=== PATIENT | male | born 1950 | race Caucasian/White ===

== ENCOUNTER 2018-08-09 07:30 | Day surgery (SDC) | payer MEDICARE, OTHER ==
[~2018-08-09 07:30] MED LIST: BETADINE 5% OPHTHALMIC 30 ML OP ONE; Lactated Ringers 1,000 ML IV ONE
[2018-08-09] MEDS ORDERED: DIPRIVAN 200 MG/20 ML IV ONE (07:31)
[2018-08-09] MEDS ORDERED: TETRACAINE 0.5% STERI-UNIT SOL OP ONE ×2 (08:00)
[2018-08-09] MEDS ORDERED: Lactated Ringers 1,000 ML IV SCH (08:00)
[2018-08-09] MEDS ORDERED: Ak-Dilate OPHTHALMIC*** 0.71 ML, Cyclogyl 1% OPHTH SOL 5 ML 0.71 ML, GATIFLOXACIN 0.5% ... OP ONE ×4 (08:00)
[2018-08-09] MEDS ORDERED: Zofran 4 MG/2 ML VIAL IV PRN (09:00)
[2018-08-09] MEDS ORDERED: LIDOCAINE HCL 1% AMPUL 5 ML IJ ONE (10:30)
[2018-08-09] MEDS ORDERED: BSS 500 ML, Fortaz/Tazicef 1 GM** 0.2 G IO ONE ×2 (10:30)
[2018-08-09] MEDS ORDERED: Epinephrine Preservative Free 1 MG/ML INTRAOP ONE (10:30)
[2018-08-09] MEDS: ACETAZOLAMIDE 250 MG TABLET PO ONE (11:34)
[2018-08-09 11:45] VITALS: O2SAT 97
[2018-08-09 12:00] VITALS: BP 146/69; PULSE 67
--- NOTE | 2018-08-09 13:41 | OP ---
DATE/TIME OF OPERATION: 08/09/2018 1255 TIME DICTATED: 1042 PREOPERATIVE DIAGNOSIS: Senile cataract of right eye. POSTOPERATIVE DIAGNOSIS: Senile cataract of right eye. SURGEON: Ross David MD REUSE TECHNICIAN: None. OPERATION: Cataract extraction of right eye with an intraocular lens implant. STANDARD __X___ COMPLEX ANESTHESIA: MAC. 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 The anesthesiologist or the nurse garden equipment mechanic was utilized to monitor and regulate the intravenous sedation of the patient, so the patient was cooperative, relaxed, and comfortable). Topical anesthesia using Tetracaine eye drops together with intra cameral anesthesia using Lidocaine 1% MPF. The nurse was utilized to monitor the patient. ANESTHESIA PROVIDER: Ze Han CRNA. COMPLICATIONS: None. BLOOD LOSS: None. INDICATIONS: The patient is undergoing cataract surgery in the hopes of eliminating the visual complaints and difficulty. PROCEDURE: After arriving at the facility's outpatient surgery area, an IV was started; the patient was given 5 mg of p.o. Versed. (If an anesthesia provider was not monitoring the patient) The patient was then given topical anesthetic Tetracaine eye drops. A cotton pellet was soaked into a solution of a combination of Zymaxid 0.5%, Shane-Synephrine 2.5% and Ocufen (other drops might have been substituted referenced in the patient's record). The pellet was inserted by the RN into the lower conjunctival cul-de-sac with a sterile forceps and left for 20 minutes. The pellet was then removed by the RN with a sterile forceps before taking the patient to the operating room. The preoperative area nurse identified the patient and marked the correct eye to be operated on. I identified the correct eye to be operated on and marked it appropriately in the outpatient surgery area. The patient was then taken into the operating room. Tetracaine eye drops were installed again in the correct eye. The eyelids and the lashes and the lid margins were scrubbed with Betadine solution. One drop of the diluted Betadine solution was placed in the conjunctival cul-de-sac for 45 seconds and then was irrigated. A drop of Tetracaine Gel was placed in the conjunctival cul-de-sac. The patient's forehead was taped to secure it during the procedure. The patient was monitored. The patient was then draped in the usual way for this procedure. An eye speculum was used to separate the eyelids. The eye was then fixated and a temporal 2.5 mm incision was made in the clear cornea temporally at the limbus. Through the incision, 0.25 cc of 1% non-preserved lidocaine was injected into the anterior chamber for intracameral anesthesia. The anterior chamber was then filled with viscoelastic. The pupil was small. I felt that it would be safer to mechanically dilate the pupil. A Malyugin ring was used at this point which dilated the pupil. That was removed at the end of the procedure prior to aspiration of the viscoelastic from the anterior chamber and posterior to the intraocular lens implant. The cataract had a great amount of cortical changes. That rendered seeing the anterior capsule difficult for a safe performance of an anterior capsulotomy. I injected an air bubble into the anterior chamber. I then injected 1 ML of vision blue solution into the anterior chamber. The vision blue solution was irrigated from the anterior chamber after 30 seconds. The anterior capsule was stained which facilitated performing the anterior capsulotomy safely. After that was completed, a cystotome was introduced into the anterior chamber and a round anterior capsulotomy was performed. The capsule was removed by a forceps. Hydrodissection was next carried utilizing a 25-gauge cannula and balanced salt solution to delineate the cortical material from the capsule and the nucleus from the cortical material. The nucleus was rotated freely into the capsular bag with no difficulty. The phaco tip of the [facility] Phaco[facility]uls[facility] was introduced into the anterior chamber and two grooves were made into the nucleus 90 degrees apart. Using two spatulas resulted into the nucleus being fractured into four quadrants. The phaco tip was then used to remove each quadrant of the nucleus. Viscoelastic was used during this process to protect the corneal endothelium. Once the entire nucleus was removed, the phaco tip then was removed and the irrigation tip was introduced into the eye and the cortex was removed. The posterior capsule was polished. It was noticed that there was a tear into the posterior capsule with few vitreous strands into the pupil plan. An anterior vitrectomy was performed. A 18.00 diopter, [id number], posterior chamber lens implant, was inspected and found to be grossly normal. The implant was inserted into the implant injector cartridge; Viscoelastic again was introduced into the anterior chamber, which filled the capsular bag. The implant injector's cartridge tip was placed at the limbal wound and the posterior chamber implant was released into the capsular bag and rotated appropriately. The implant was found to be into the capsular bag and it was centered. __X__ 0.2 ml of Tri-Moxi was introduced via 27 gauge cannula into the vitreous cavity through the ciliary processes. Viscoelastic was aspirated from the anterior chamber and posterior to the intraocular lens implant from the capsular bag using the irrigating tip. The anterior chamber was irrigated and filled with 5 cc antibiotic solution (500 cc of BSS plus 2 ml of Fortaz 100 mg/ml) ( if patient was not allergic to the medication). The lips of the corneal incision were hydrated using BSS solution. The anterior chamber was checked and found to be water tight. One drop each of antibiotic, steroid and NSAID drops (refer to chart for drops used) were placed in the conjunctival cul-de-sac of the operated eye. Patient tolerated the procedure quite well and left the operating room in satisfactory condition. DISCHARGE SUMMARY: The patient was released in stable condition. The patient and those with the patient were given an instruction sheet as of how to care for the eye after surgery as well as counseling on any abnormal laboratory studies by the postoperative RN. The patient was also given an appointment card for follow-up in the office and is to call immediately for any difficulties including but not limited to pain in the eye, decreased vision, discharge from the eye, headache and or fever. DISCHARGE DIAGNOSIS: Pseudophakia of right eye.
== END 2018-08-09 12:21 | disposition home or self-care (01) ==
LOC: SDC 07:30
PROVIDERS: ATTEND Ophthalmology
DX: H25.9 Unspecified age-related cataract (principal); M19.90 Unspecified osteoarthritis, unspecified site; E11.9 Type 2 diabetes mellitus without complications; Z79.4 Long term (current) use of insulin; G47.00 Insomnia, unspecified; N40.0 Benign prostatic hyperplasia without lower urinary tract symptoms; F31.9 Bipolar disorder, unspecified; G20 Parkinson's disease
CPT/HCPCS: 66982; 66984; 67005; 82962; 94250; C1780; J0171; J2704; A9270-GY

== ENCOUNTER 2020-11-07 12:01 | Emergency (ER) | payer MEDICARE, OTHER ==
--- NOTE | 2020-11-07 12:47 | XRAY ---
Indication: Fever and cough. Covid 19 in August 2020. Portable chest rotated with right mid to lower lung infiltrate versus atelectasis. Left lung clear. Heart borderline enlarged. Descending aorta are tortuous. Bony thorax intact with mild degenerative changes. Impression: Right mid to lower lung infiltrate/atelectasis and borderline cardiomegaly.
--- NOTE | 2020-11-07 12:52 | ERPHSYRPT ---
- History of Present Illness Source: patient Exam Limitations: no limitations Patient Subjective Stated Complaint: Pt states that for about 4 days he has been having a fever off and on, headache, coughing, sob, and nausea with dry heaves, pt was positive for covid 09/22/2020 and had it for approx 3 weeks Triage Nursing Assessment: Pt brought to the ER by his , hypertensive, tachycardic, diaphoretic, pulses normal, denies pain with palpatation to the abdomen, lungs clear, skin n/h/diaphoretic, rates pain in head 04/03, cough Physician History: 70 yo wm who was CV+ after Thanksgiving and recovered after 3 wks presents to ER w 4day h/o BRITO/N/cough/fever wo vomiting/coryza/chest pain. He has mild dyspnea. Timing/Duration: day(s) (4 days) Fever Severity: mild Fever Therapy SENIOR ADMINISTRATIVE ASSOCIATE: Ibuprofen Associated Symptoms: cough, diaphoresis, headache, muscle aches, nausea/vomiting, No abdominal pain, No chest pain, No confusion, No rash, No rhinorrhea, No shortness of breath, No sore throat, No stiff neck, No syncope, No weakness Allergies/Adverse Reactions: No Known Drug Allergies Allergy (Verified 11/07/20 12:29) Home Medications: Armodafinil [Nuvigil] 150 mg PO DAILY 07/27/18 [History] Doxycycline Hyclate 100 mg PO DAILY 07/27/18 [History] Metformin HCl 500 mg [Glucophage 500 MG] 500 mg PO BIDWM 07/27/18 [History] Pramipexole Di-HCl [Mirapex] 0.25 mg PO DAILY 07/27/18 [History] Sertraline HCl [Zoloft] 100 mg PO DAILY 07/27/18 [History] Zolpidem Tartrate 10 mg [Ambien 10 MG] 10 mg PO HS 07/27/18 [History] Atorvastatin Calcium [Lipitor] 20 mg PO DAILY 11/07/20 [History] Diclofenac Sodium 75 mg PO BID 11/07/20 [History] Lisinopril/Hydrochlorothiazide [Lisinopril-Hctz 10-12.5 mg Tab] 1 tab PO DAILY 11/07/20 [History] Quetiapine Fumarate [Seroquel] 50 mg PO DAILY 11/07/20 [History] Hx Influenza Vaccination/Date Given: Yes Hx Pneumococcal Vaccination/Date Given: Yes Travel Risk - International Travel Have you traveled outside of the country in past 3 weeks: No - Coronavirus Screening Are you exhibiting any of the following symptoms?: Yes Symptoms: Fever, Cough: New Onset, Shortness of Breath, Vomiting/Diarrhea Close contact with a COVID-19 positive Pt in past 14-21 Days: No - Review of Systems Constitutional: No Symptoms, Fever, Chills, Fatigue Eyes: No Symptoms Ears, Nose, & Throat: No Symptoms Respiratory: No Symptoms, Cough Cardiac: No Symptoms Abdominal/Gastrointestinal: No Symptoms, Nausea Genitourinary Symptoms: No Symptoms Musculoskeletal: No Symptoms Skin: No Symptoms Neurological: No Symptoms, Headache Psychological: No Symptoms Endocrine: No Symptoms Hematologic/Lymphatic: No Symptoms Immunological/Allergic: No Symptoms - Past Medical History Pertinent Past Medical History: Yes Neurological History: No Pertinent History ENT History: Cataracts Cardiac History: No Pertinent History Respiratory History: No Pertinent History Endocrine Medical History: Diabetes Type II Musculoskeletal History: Osteoarthritis GI Medical History: No Pertinent History History: No Pertinent History Psycho-Social History: Depression Male Reproductive Disorders: No Pertinent History 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 - Social History Smoking Status: Former smoker Exposure to second hand smoke: No Drug Use: none Patient Lives Alone: No Significant Family History: no pertinent family hx - Nursing Vital Signs Nursing Vital Signs: Initial Vital Signs Temperature 99.6 F 11/07/20 12:08 Pulse Rate 101 H 11/07/20 12:08 Respiratory Rate 22 11/07/20 12:08 Blood Pressure 158/57 11/07/20 12:08 O2 Sat by Pulse Oximetry 96 11/07/20 12:08 Pain Scale Pain Intensity 5 - Physical Exam General Appearance: no apparent distress Eye Exam: PERRL/EOMI, eyes nml inspection, No scleral icterus, No pale c onjunctivae ENT Exam: normal ENT inspection, no apparent trauma, hearing grossly normal, TMs normal, pharynx normal, No nasal congestion, No nasal drainage Neck Exam: normal inspection, non-tender, supple, full range of motion, trachea midline, No Brudzinski's sign, No Kernig's sign, No meningismus (Absolutely no nuchal rigidity/No pain at all elicitied w any cervical motion) Respiratory Exam: normal breath sounds, lungs clear, no respiratory distress, no accessory muscle use, No respiratory distress Cardiovascular/Chest Exam: normal heart sounds, tachycardia, No murmur Gastrointestinal/Abdominal Exam: soft, non tender, no distention, no mass Extremity Exam: non-tender, normal range of motion, normal inspection, normal capillary refill, no calf tenderness, no pedal edema Neurologic Exam: alert, oriented x 3, cooperative, used car 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 II-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 nml as tested, normal mood/affect, nml cerebellar function, nml station & gait, sensation nml, No motor deficits, No sensory deficit, No disoriented, No confusion, No agitation, No uncooperative, No depressed mood/affect, No motor weakness, No facial droop, No slurred speech, No aphasia, No dysarthria, No abnormal gait, No abnormal cerebellar tests, No abnormal used car 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 II-XII, No EOM palsy Skin Exam: normal color, warm, dry, No rash Lymphatic: No adenopathy SpO2 Interpretation: normal SpO2: 96 O2 Delivery: Room Air - Course Nursing assessment & vital signs reviewed: Yes EKG Interpreted by Me: RATE (NSR/R99/Normal Qt, mildly prolonged QTc/Nonspecific st-twave changes) - Radiology Exams Chest X-ray Interpretation: Discussed w/ radiologist (R middle to lower lobe infiltrate) - CT Exams Head CT Interpretation: Discussed w/radiologist (CT head-L maxillary sinus disease, otherwise neg) Ordered Tests: Active Orders 24 hr Category Date Time Status EKG-ER Only STAT Care 11/07/20 12:17 Completed IV Insertion STAT Care 11/07/20 12:17 Completed CHEST 1 VIEW (PORTABLE) Stat Exams 11/07/20 12:30 Completed CHEST WITHOUT CONTRAST [CT] Stat Exams 11/07/20 13:15 Completed HEAD WITHOUT CONTRAST [CT] Stat Exams 11/07/20 12:37 Completed CBC W DIFF Stat Lab 11/07/20 12:25 Completed CMP Stat Lab 11/07/20 12:25 Completed INFLUENZA A+B ZOYA Stat Lab 11/07/20 14:25 Completed Lactic Acid Stat Lab 11/07/20 12:38 Completed Lactic Acid Stat Lab 11/07/20 14:42 Stop Req Manual Differential NC Stat Lab 11/07/20 12:25 Completed TROPONIN Q3H Lab 11/07/20 12:25 Completed TROPONIN Q3H Lab 11/07/20 15:25 Completed UA W/RFX UR CULTURE Stat Lab 11/07/20 15:56 Completed Medication Summary Discontinued Medications Generic Name Dose Route Start Last Admin Trade Name Freq PRN Reason Stop Dose Admin Sodium Chloride 1,000 mls @ 999 mls/hr 11/07/20 14:05 11/07/20 15:10 Sodium Chloride 0.9% 1000 Ml IV 11/07/20 15:05 Infused .Q1H1M STA Infusion Sodium Chloride Confirm 11/07/20 14:06 Sodium Chloride 0.9% 1000 Ml Administered 11/07/20 14:07 Dose 1,000 mls @ ud .ROUTE .STK-MED ONE Ketorolac Tromethamine 30 mg 11/07/20 13:13 11/07/20 13:14 Toradol 30 Mg Injection IV 11/07/20 13:14 30 mg STAT ONE Administration Ketorolac Tromethamine Confirm 11/07/20 13:13 Toradol 30 Mg Injection Administered 11/07/20 13:14 Dose 30 mg .ROUTE .STK-MED ONE Morphine Sulfate 4 mg 11/07/20 15:12 11/07/20 15:21 Morphine Sulfate 2 Mg Inj IV 11/07/20 15:13 4 mg 1XONLY ONE Administration Morphine Sulfate Confirm 11/07/20 15:20 Morphine Sulfate 2 Mg Inj Administered 11/07/20 15:21 Dose 4 mg .ROUTE .STK-MED ONE Ondansetron HCl 4 mg 11/07/20 15:13 11/07/20 15:21 Zofran 4 Mg/2 Ml Vial IV 11/07/20 15:14 4 mg STAT ONE Administration Ondansetron HCl Confirm 11/07/20 15:19 Zofran 4 Mg/2 Ml Vial Administered 11/07/20 15:20 Dose 4 mg .ROUTE .STK-MED ONE Lab/Rad Data: Laboratory Result Diagrams 11/07/20 12:25 11/07/20 12:25 Laboratory Results 11/07/20 11/07/20 11/07/20 Range/Units 15:56 15:25 14:25 WBC (4.0-10.5) K/mm3 RBC (4.1-5.6) M/mm3 Hgb (12.5-18.0) gm/dl Hct (42-50) % MCV (78-100) fl MCH (26-32) pg MCHC (32-36) g/dl RDW (11.5-14.0) % Plt Count (150-450) K/mm3 MPV (7.5-11.0) fl Segmented Neutrophils (36.-66.) % Band Neutrophils (0.0-2.0) % Lymphocytes (Manual) (24-44) % Monocytes (Manual) (0.0-12.0) % Atypical Lymphocytes % Toxic Granulation Platelet Estimate (NORMAL) RBC Morphology Sodium (137-145) mmol/L Potassium (3.5-5.1) mmol/L Chloride (98-107) mmol/L Carbon Dioxide (22-30) mmol/L Anion Gap (5-15) MEQ/L BUN (9-20) mg/dL Creatinine (0.66-1.25) mg/dL Estimated GFR ML/MIN Glucose (74-106) mg/dL Lactic Acid (0.4-2.0) Calcium (8.4-10.2) mg/dL Total Bilirubin (0.2-1.3) mg/dL AST (17-59) U/L ALT (0-50) U/L Alkaline Phosphatase (38-126) U/L Troponin I 0.019 (0.000-0.034) ng/mL Serum Total Protein (6.3-8.2) g/dL Albumin (3.5-5.0) g/dL Urine Color OANH (YELLOW) Urine Appearance SLIGHTLY CLOUDY (CLEAR) Urine pH 5.0 (5-6) Ur Specific [place] 1.033 (1.005-1.025) Urine Protein 100 (Negative) Urine Ketones TRACE (NEGATIVE) Urine Blood NEGATIVE (0-5) Jesus/ul Urine Nitrite NEGATIVE (NEGATIVE) Urine Bilirubin SMALL (NEGATIVE) Urine Urobilinogen 2 (0-1) mg/dL Ur Leukocyte Esterase NEGATIVE (NEGATIVE) Urine WBC (Auto) 3-5 (0-5) /HPF Urine RBC (Auto) NONE (0-2) /HPF U Epithel Cells (Auto) NONE (FEW) /HPF Urine Bacteria (Auto) NONE (NEGATIVE) /HPF Urine Mucus (Auto) MANY (NEGATIVE) /HPF Urine Culture Reflexed NO (NO) Urine Glucose NEGATIVE (NEGATIVE) mg/dL Influenza Type A Ag NEGATIVE (NEGATIVE) Influenza Type B Ag NEGATIVE (NEGATIVE) 11/07/20 11/07/20 11/07/20 Range/Units 12:38 12:25 12:25 WBC (4.0-10.5) K/mm3 RBC (4.1-5.6) M/mm3 Hgb (12.5-18.0) gm/dl Hct (42-50) % MCV (78-100) fl MCH (26-32) pg MCHC (32-36) g/dl RDW (11.5-14.0) % Plt Count (150-450) K/mm3 MPV (7.5-11.0) fl Segmented Neutrophils (36.-66.) % Band Neutrophils (0.0-2.0) % Lymphocytes (Manual) (24-44) % Monocytes (Manual) (0.0-12.0) % Atypical Lymphocytes % Toxic Granulation Platelet Estimate (NORMAL) RBC Morphology Sodium 133 L (137-145) mmol/L Potassium 3.7 (3.5-5.1) mmol/L Chloride 102 (98-107) mmol/L Carbon Dioxide 22 (22-30) mmol/L Anion Gap 12.7 (5-15) MEQ/L BUN 8 L (9-20) mg/dL Creatinine 0.60 L (0.66-1.25) mg/dL Estimated GFR > 60.0 ML/MIN Glucose 140 H (74-106) mg/dL Lactic Acid 1.9 (0.4-2.0) Calcium 8.9 (8.4-10.2) mg/dL Total Bilirubin 0.60 (0.2-1.3) mg/dL AST 131 H (17-59) U/L ALT 86 H (0-50) U/L Alkaline Phosphatase 82 (38-126) U/L Troponin I 0.015 (0.000-0.034) ng/mL Serum Total Protein 6.4 (6.3-8.2) g/dL Albumin 3.6 (3.5-5.0) g/dL Urine Color (YELLOW) Urine Appearance (CLEAR) Urine pH (5-6) Ur Specific [place] (1.005-1.025) Urine Protein (Negative) Urine Ketones (NEGATIVE) Urine Blood (0-5) Jesus/ul Urine Nitrite (NEGATIVE) Urine Bilirubin (NEGATIVE) Urine Urobilinogen (0-1) mg/dL Ur Leukocyte Esterase (NEGATIVE) Urine WBC (Auto) (0-5) /HPF Urine RBC (Auto) (0-2) /HPF U Epithel Cells (Auto) (FEW) /HPF Urine Bacteria (Auto) (NEGATIVE) /HPF Urine Mucus (Auto) (NEGATIVE) /HPF Urine Culture Reflexed (NO) Urine Glucose (NEGATIVE) mg/dL Influenza Type A Ag (NEGATIVE) Influenza Type B Ag (NEGATIVE) 11/07/20 Range/Units 12:25 WBC 4.7 (4.0-10.5) K/mm3 RBC 4.54 (4.1-5.6) M/mm3 Hgb 13.5 (12.5-18.0) gm/dl Hct 40.1 L (42-50) % MCV 88.3 (78-100) fl MCH 29.7 (26-32) pg MCHC 33.7 (32-36) g/dl RDW 14.3 H (11.5-14.0) % Plt Count 137 L (150-450) K/mm3 MPV 10.7 (7.5-11.0) fl Segmented Neutrophils 83 H (36.-66.) % Band Neutrophils 7 H (0.0-2.0) % Lymphocytes (Manual) 6 L (24-44) % Monocytes (Manual) 3 (0.0-12.0) % Atypical Lymphocytes 1 % Toxic Granulation 1+ Platelet Estimate NORMAL (NORMAL) RBC Morphology NORMAL Sodium (137-145) mmol/L Potassium (3.5-5.1) mmol/L Chloride (98-107) mmol/L Carbon Dioxide (22-30) mmol/L Anion Gap (5-15) MEQ/L BUN (9-20) mg/dL Creatinine (0.66-1.25) mg/dL Estimated GFR ML/MIN Glucose (74-106) mg/dL Lactic Acid (0.4-2.0) Calcium (8.4-10.2) mg/dL Total Bilirubin (0.2-1.3) mg/dL AST (17-59) U/L ALT (0-50) U/L Alkaline Phosphatase (38-126) U/L Troponin I (0.000-0.034) ng/mL Serum Total Protein (6.3-8.2) g/dL Albumin (3.5-5.0) g/dL Urine Color (YELLOW) Urine Appearance (CLEAR) Urine pH (5-6) Ur Specific [place] (1.005-1.025) Urine Protein (Negative) Urine Ketones (NEGATIVE) Urine Blood (0-5) Jesus/ul Urine Nitrite (NEGATIVE) Urine Bilirubin (NEGATIVE) Urine Urobilinogen (0-1) mg/dL Ur Leukocyte Esterase (NEGATIVE) Urine WBC (Auto) (0-5) /HPF Urine RBC (Auto) (0-2) /HPF U Epithel Cells (Auto) (FEW) /HPF Urine Bacteria (Auto) (NEGATIVE) /HPF Urine Mucus (Auto) (NEGATIVE) /HPF Urine Culture Reflexed (NO) Urine Glucose (NEGATIVE) mg/dL Influenza Type A Ag (NEGATIVE) Influenza Type B Ag (NEGATIVE) - Progress Progress: improved Progress Note: 11/07/20 17:09 30mg IV Toradol w mild improvement in BRITO 1L NS bolus 4mgIV MSO4/4mg IV Zofran w marked improvement in pain Pt has no nuchal rigidity/No fever/Instructed to return to ER for increasing BRITO, neck stiffness, temperature greater than 100.5 Counseled pt/family regarding: lab results, diagnosis, need for follow-up, rad results - Departure Departure Disposition: Home Clinical Impression: Viral cephalgia Condition: Stable Critical Care Time: No Referrals: ROSA MCCORD MD [Primary Care Provider] - Instructions: Headache, Adult (DC) Additional Instructions: Fluids/Rest Follow up with Dr. Mccord in AM Return to ER for increasing pain or temperature greater than 100.5
[2020-11-07 12:53] LABS: Hematocrit 40.1 % (42-50); Hemoglobin 13.5 gm/dl (12.5-18.0); Mean Cell Volume 88.3 fl (78-100); Mean Corpuscular Hemoglobin 29.7 pg (26-32); Mean Corpuscular Hgb Concent. 33.7 g/dl (32-36); Mean Platelet Volume 10.7 fl (7.5-11.0); Platelet Count 137 K/mm3 (150-450); Red Blood Count 4.54 M/mm3 (4.1-5.6); Red Cell Distribution Width 14.3 % (11.5-14.0); White Blood Count 4.7 K/mm3 (4.0-10.5)
[2020-11-07 12:58] LABS: ALBUMIN 3.6 g/dL (3.5-5.0); ALKALINE PHOSPHATASE 82 U/L (38-126); ANION GAP 12.7 MEQ/L (5-15); BLOOD UREA NITROGEN 8 mg/dL (9-20); CHLORIDE 102 mmol/L (98-107); Calcium 8.9 mg/dL (8.4-10.2); Carbon Dioxide 22 mmol/L (22-30); EST GLOMERULAR FILTRATION RATE > 60.0 ML/MIN; Glucose 140 mg/dL (74-106); Potassium 3.7 mmol/L (3.5-5.1); SGOT/AST 131 U/L (17-59); SGPT/ALT 86 U/L (0-50); SODIUM 133 mmol/L (137-145); Total Protein 6.4 g/dL (6.3-8.2)
--- NOTE | 2020-11-07 13:08 | XRAY ---
Indication: Headache. Multiple contiguous axial images obtained through the head without contrast. Comparison: None Age-appropriate global atrophy. No acute intracranial hemorrhage, abnormal extra-axial fluid collection, or mass effect. Fourth ventricle is midline without hydrocephalus. Saeed-white matter differentiation is preserved. Bony calvarium intact with incidental hyperostosis frontalis interna. Left maxillary sinus demonstrates tiny fluid leveling. Remaining paranasal sinuses and mastoid air cells are clear. Impression: Atrophy within normal limits for patient's age. Left maxillary sinus disease. Remaining CT head without contrast exam is negative.
[2020-11-07] MEDS ORDERED: TORAdol 30 mg Injection IV ONE (13:13)
[2020-11-07] MEDS ORDERED: TORAdol 30 mg Injection ONE (13:13)
--- NOTE | 2020-11-07 13:48 | XRAY ---
Indication: Cough. Covid 19 in August 2020. Multiple contiguous axial images obtained through the chest without contrast as ordered. Comparison: None Lungs inflated and clear. Incidental right hemidiaphragm elevation. Heart is not enlarged. No pericardial effusion. Aorta is minimally arteriosclerotic without aneurysm. No pathologic mediastinal lymphadenopathy. Bony thorax intact with mild degenerative changes throughout the spine. Limited upper abdomen demonstrates fatty liver and 15.3 cm splenomegaly. Impression: 1. Right hemidiaphragm elevation, fatty liver, splenomegaly, and chronic bony findings. 2. Remaining CT chest without contrast exam is negative. Right lung findings on same day radiograph probably artifactual due to rotation and summation shadows.
[2020-11-07] MEDS ORDERED: Sodium Chloride 0.9% 1000 ML 1,000 ML IV STA (14:05)
[2020-11-07] MEDS ORDERED: Sodium Chloride 0.9% 1000 ML 1,000 ML ONE (14:06)
[2020-11-07 14:47] LABS: ATYPICAL LYMPHS 1 %; BAND 7 % (0.0-2.0); Lymphocytes 6 % (24-44); Monocyte 3 % (0.0-12.0); Neutrophils 83 % (36.-66.); Total Cells Counted 100
[2020-11-07 14:48] LABS: Platelet Estimate NORMAL (NORMAL); Toxic Granulation 1+
[2020-11-07 15:04] LABS: INFLUENZA A NEGATIVE (NEGATIVE); INFLUENZA B NEGATIVE (NEGATIVE)
[2020-11-07] MEDS ORDERED: MORPHINE SULFATE 2 MG INJ IV ONE (15:12)
[2020-11-07] MEDS ORDERED: Zofran 4 MG/2 ML VIAL IV ONE (15:13)
[2020-11-07] MEDS ORDERED: Zofran 4 MG/2 ML VIAL ONE (15:19)
[2020-11-07] MEDS ORDERED: MORPHINE SULFATE 2 MG INJ ONE (15:20)
[2020-11-07 16:59] LABS: Appearance SLIGHTLY CLOUDY (CLEAR); Bilirubin SMALL (NEGATIVE); Blood NEGATIVE Ery/ul (0-5); Glucose NEGATIVE (NEGATIVE); Ketones TRACE (NEGATIVE); Leukocyte Esterase NEGATIVE (NEGATIVE); Mucus MANY /HPF (NEGATIVE); Nitrite NEGATIVE (NEGATIVE); Protein,Urine Dip 100 (Negative); Specific Gravity 1.033 (1.005-1.025); Urobilinogen 2 mg/dL (0-1)
[2020-11-07 17:05] VITALS: BP 121/46; PULSE 85
[2020-11-07 17:12] VITALS: O2SAT 96
== END 2020-11-07 17:17 | disposition home or self-care (01) ==
LOC: ED 12:01
DX: R51.9 Headache, unspecified (principal); B34.9 Viral infection, unspecified
CPT/HCPCS: 36000; 36415; 70450; 71045; 71250; 80053; 81001; 83605; 84484; 85025; 87400; 93005; 96360; 96374; 96375; 99284; J1885; J2270; J2405

== ENCOUNTER 2021-07-23 15:35 | Day surgery (SDC) | payer MEDICARE, OTHER ==
[2021-07-23] MEDS ORDERED: Xylocaine 1% Vial 30 ML PF IJ ONE (15:36)
[2021-07-23] MEDS ORDERED: SYNVISC 16 MG/2 ML SYRINGE IU ONE (15:36)
--- NOTE | 2021-07-23 18:29 | XRAY ---
Indication: Left knee injection. Intraoperative fluoroscopy provided for 22 seconds. Single digital spot image submitted for interpretation demonstrates needle tip projecting over the left femur intercondylar notch. Small amount of contrast injected for needle tip placement. Correlate with intraoperative findings/report.
--- NOTE | 2021-07-23 18:44 | XRAY ---
Indication: Right knee injection. Intraoperative fluoroscopy provided for 9 seconds. Single digital spot image submitted for interpretation demonstrates needle tip projecting over the right femur intercondylar notch. Small amount of contrast injected for needle tip placement. Correlate with intraoperative findings/report.
--- NOTE | 2021-07-23 19:01 | XRAY ---
9 seconds of fluoroscopy was used in surgery for a right knee intra-articular injection.
--- NOTE | 2021-07-23 19:01 | XRAY ---
22 seconds of fluoroscopy was used in surgery for a left knee intra-articular injection.
== END 2021-07-23 17:13 | disposition home or self-care (01) ==
LOC: SDC-PAIN 15:35
PROVIDERS: ATTEND Psychiatry & Neurology Pain Medicine
DX: M17.0 Bilateral primary osteoarthritis of knee (principal); E11.9 Type 2 diabetes mellitus without complications; Z79.899 Other long term (current) drug therapy
CPT/HCPCS: 20610; 73560; 77002; J2001; J7325; Q9966

== ENCOUNTER 2021-07-30 16:55 | Day surgery (SDC) | payer MEDICARE, OTHER ==
[2021-07-30] MEDS ORDERED: Xylocaine 1% Vial 30 ML PF IJ ONE (16:56)
[2021-07-30] MEDS ORDERED: SYNVISC 16 MG/2 ML SYRINGE IU ONE (16:56)
--- NOTE | 2021-07-30 20:45 | XRAY ---
Indication: Left knee injection. Intraoperative fluoroscopy provided for 16 seconds. Single digital spot image submitted for interpretation demonstrates needle tip projecting left femur intercondylar notch. Small amount of contrast injected for needle tip placement. Correlate with intraoperative findings/report.
--- NOTE | 2021-07-30 20:47 | XRAY ---
Indication: Right knee injection. Intraoperative fluoroscopy provided for 12 seconds. Single digital spot image submitted for interpretation demonstrates needle tip projecting right femur intercondylar notch. Small amount of contrast injected for needle tip placement. Correlate with intraoperative findings/report.
--- NOTE | 2021-07-31 08:42 | XRAY ---
16 seconds fluoroscopy time in surgery for intra-articular injection of the left knee.
--- NOTE | 2021-07-31 08:51 | XRAY ---
12 seconds fluoroscopy time in surgery for intra-articular injection of the right knee.
== END 2021-07-30 19:30 | disposition home or self-care (01) ==
LOC: SDC-PAIN 16:55
PROVIDERS: ATTEND Psychiatry & Neurology Pain Medicine
DX: M17.0 Bilateral primary osteoarthritis of knee (principal); E11.9 Type 2 diabetes mellitus without complications; Z79.899 Other long term (current) drug therapy
CPT/HCPCS: 20610; 73560; 77002; 82947; J2001; J7325; Q9966

== ENCOUNTER 2021-08-06 10:15 | Day surgery (SDC) | payer MEDICARE, OTHER ==
[2021-08-06] MEDS ORDERED: Xylocaine 1% Vial 30 ML PF IJ ONE (10:16)
[2021-08-06] MEDS ORDERED: SYNVISC 16 MG/2 ML SYRINGE IU ONE (10:16)
--- NOTE | 2021-08-06 13:03 | XRAY ---
7 seconds fluoroscopy time in surgery for intra-articular injection of the left knee.
--- NOTE | 2021-08-06 13:03 | XRAY ---
Indication: Right knee injection. Intraoperative fluoroscopy provided for 10 seconds. Single digital spot image submitted for interpretation demonstrate needle tip projecting over the right femur intracondylar notch. Small amount of contrast injected for needle tip placement. Correlate with intraoperative findings/report.
--- NOTE | 2021-08-06 13:13 | XRAY ---
10 seconds fluoroscopy time in surgery for intra-articular injection of the right knee.
--- NOTE | 2021-08-06 13:14 | XRAY ---
Indication: Left knee injection. Intraoperative fluoroscopy provided for 7 seconds. Single digital spot image submitted for interpretation demonstrate needle tip projecting over the left femur intracondylar notch. Small amount of contrast injected for needle tip placement. Correlate with intraoperative findings/report.
== END 2021-08-06 12:05 | disposition home or self-care (01) ==
LOC: SDC-PAIN 10:15
PROVIDERS: ATTEND Psychiatry & Neurology Pain Medicine
DX: M17.0 Bilateral primary osteoarthritis of knee (principal); E11.9 Type 2 diabetes mellitus without complications; Z79.899 Other long term (current) drug therapy
CPT/HCPCS: 20610; 73560; 77002; 82947; J2001; J7325; Q9966

== ENCOUNTER 2022-02-07 05:53 | Emergency (ER) | payer MEDICARE, OTHER ==
[2022-02-07] MEDS ORDERED: SUBLIMAZE 100 MCG/2 ML IV ONE ×3 (06:26→08:38)
[2022-02-07] MEDS ORDERED: Zofran 4 MG/2 ML VIAL IV ONE (06:26)
[2022-02-07] MEDS ORDERED: Zofran 4 MG/2 ML VIAL ONE (06:29)
[2022-02-07] MEDS ORDERED: SUBLIMAZE 100 MCG/2 ML ONE ×3 (06:29→08:40)
--- NOTE | 2022-02-07 06:33 | ERPHSYRPT ---
- History of Present Illness Source: patient Exam Limitations: no limitations Patient Subjective Stated Complaint: pt states he got up to go the bathroom and fell. states he is having pain in his mid back from twisting and having pain in his lt hip. Triage Nursing Assessment: pt alert and oriented, answers questions approp. pt arrive per ambulance and transfers to stretcher with assist of 4. pt reports increased pain in back and lt hip with movement. abrasion to chin, pt reports pain to rt jaw, abrasion to rt forehead, abrasion to lt knee. abrasion to rt hand. +1 pitting edema to bilat feet- pt states is normal for him Occurred: just prior to arrival Reason for Fall: lost balance, slipped Injuries/Pain Location: head, face, back, lower extremity Loss of Consciousness: no loss of consciousness, dazed Quality: aching Severity of Pain-Max: severe Severity of Pain-Current: severe Modifying Factors: Improves With: movement Associated Symptoms (Fall): back pain, extremity injury (L hip), No abdominal pain, No confusion, No chest pain, No dizziness, No headache, No lightheadedness Hx Tetanus, Diphtheria Vaccination/Date Given: No Hx Influenza Vaccination/Date Given: Yes Hx Pneumococcal Vaccination/Date Given: Yes Immunizations Up to Date: No <NATI RYDER - Last Filed: 02/07/22 06:27> <KE BRO - Last Filed: 02/07/22 09:08> - History of Present Illness Physician History: 71 yo wm lost balance after getting up to use the bathroom. Pt complains of BRITO/facial pain/R posterior thoracic pain and L hip pain. There was no LOC, and pt is not on anticoagulants. He will be given TDAP in ER. (NATI RYDER) Allergies/Adverse Reactions: No Known Drug Allergies Allergy (Verified 02/07/22 06:08) Home Medications: Doxycycline Hyclate 100 mg PO DAILY 07/27/18 [History] Metformin HCl 500 mg [Glucophage 500 MG] 500 mg PO BIDWM 07/27/18 [History] Pramipexole Di-HCl [Mirapex] 0.25 mg PO DAILY 07/27/18 [History] Sertraline HCl [Zoloft] 100 mg PO DAILY 07/27/18 [History] Zolpidem Tartrate 10 mg [Ambien 10 MG] 10 mg PO HS 07/27/18 [History] Atorvastatin Calcium [Lipitor] 20 mg PO DAILY 11/07/20 [History] Diclofenac Sodium 75 mg PO BID 11/07/20 [History] Quetiapine Fumarate [Seroquel] 50 mg PO HS 11/07/20 [History] Empagliflozin [Jardiance] 10 mg PO DAILY 02/07/22 [History] Travel Risk - International Travel Have you traveled outside of the country in past 3 weeks: No - Coronavirus Screening Are you exhibiting any of the following symptoms?: No Close contact with a COVID-19 positive Pt in past 14-21 Days: No - Vaccine Status Have you recieved a Covid-19 vaccination: Yes 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 - Vaccination Dates Date of 2cond Vaccination (if applicable): 2020 <NATI RYDER - Last Filed: 02/07/22 06:27> - Review of Systems Constitutional: No Symptoms Eyes: No Symptoms Ears, Nose, & Throat: No Symptoms Respiratory: No Symptoms Cardiac: No Symptoms Abdominal/Gastrointestinal: No Symptoms Genitourinary Symptoms: No Symptoms Skin: No Symptoms Neurological: No Symptoms, Headache Psychological: No Symptoms Endocrine: No Symptoms Hematologic/Lymphatic: No Symptoms Immunological/Allergic: No Symptoms <NATI RYDER - Last Filed: 02/07/22 06:27> - Past Medical History Pertinent Past Medical History: Yes Neurological History: No Pertinent History ENT History: Cataracts Cardiac History: No Pertinent History Respiratory History: No Pertinent History Endocrine Medical History: Diabetes Type II Musculoskeletal History: Osteoarthritis GI Medical History: No Pertinent History History: No Pertinent History Psycho-Social History: Depression Male Reproductive Disorders: No Pertinent History 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 - Social History Smoking Status: Former smoker Exposure to second hand smoke: No Drug Use: none Patient Lives Alone: No Significant Family History: no pertinent family hx <NATI RYDER - Last Filed: 02/07/22 06:27> - [place] Coma Score Best Eye Response (Ike): (4) open spontaneously Best Verbal Response ([place]): (5) oriented Best Motor Response (Kie): (6) obeys commands [place] Total: 15 - Physical Exam General Appearance: no apparent distress (In pain) Head Injury: tenderness (R glabellar abrasion/R mandible abrasion) Eye Exam: PERRL/EOMI, eyes nml inspection ENT Exam: airway nml, No clear fluid (ears), No clear fluid (nose) Neck Exam: supple, trachea midline, full range of motion, normal inspection (C- spine NTTP), No tenderness Respiratory/Chest Exam: normal breath sounds, other (R posterior thorax TTP/Minimal T-spine TTP), No chest tenderness, No respiratory distress Cardiovascular Exam: normal heart sounds, regular rate/rhythm, No murmur Gastrointestinal Exam: soft, normal bowel sounds, No tenderness Back Exam: normal inspection, No vertebral tenderness (L-spine NTTP) Extremity Exam: capillary refill <3 sec (Abrasion R hand), pelvis stable, tenderness (TTP L Hip) Neurologic Exam: alert, oriented x 3, cooperative, 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 as tested, normal mood/affect, sensation nml Skin Exam: normal color, warm, dry SpO2 Interpretation: normal SpO2: 95 O2 Delivery: Room Air <NATI RYDER - Last Filed: 02/07/22 06:27> - Nursing Vital Signs Nursing Vital Signs: Initial Vital Signs Temperature 97.2 F 02/07/22 05:55 Pulse Rate 65 02/07/22 05:55 Respiratory Rate 18 02/07/22 05:55 Blood Pressure 171/62 02/07/22 05:55 O2 Sat by Pulse Oximetry 95 02/07/22 05:55 Pain Scale Pain Intensity 8 Hypertensive (NATI RYDER) - Course Nursing assessment & vital signs reviewed: Yes <NATI RYDER - Last Filed: 02/07/22 06:27> - Radiology Exams Hand X-ray Interpretation: Interpreted by me, Negative - CT Exams Head CT Interpretation: Negative, Tele-radiologist Report Maxillofacial Bones CT Interpretation: Negative, Tele-radiologist Report Abdomen/Pelvis CT Interpretation: Tele-radiologist Report, Other (Lectures involving the left pedicle lamina and spinous process of L2 with suspected fracture involving the anterior inferior endplate, disc space widening, and perivertebral soft tissue swelling concerning for ligamentous injury.) <EK BRO - Last Filed: 02/07/22 09:08> Ordered Tests: Active Orders 24 hr Category Date Time Status ABDOMEN AND PELVIS W CONTRAST [CT] Stat Exams 02/07/22 07:27 Taken CHEST WITH CONTRAST [CT] Stat Exams 02/07/22 06:25 Taken FACIAL BONES WO CONTRAST [CT] Stat Exams 02/07/22 06:25 Taken HAND (MINIMUM 3 VIEWS) Stat Exams 02/07/22 07:44 Taken HEAD WITHOUT CONTRAST [CT] Stat Exams 02/07/22 06:25 Taken CBC W DIFF Stat Lab 02/07/22 06:43 Completed CMP Stat Lab 02/07/22 06:43 Completed Manual Differential NC Stat Lab 02/07/22 06:43 Completed TROPONIN Q3H Lab 02/07/22 06:43 Completed TROPONIN Q3H Lab 02/07/22 09:30 Ordered TROPONIN Q3H Lab 02/07/22 12:30 Ordered TROPONIN Q3H Lab 02/07/22 15:30 Ordered TROPONIN Q3H Lab 02/07/22 18:30 Ordered Medication Summary Discontinued Medications Generic Name Dose Route Start Last Admin Trade Name Freq PRN Reason Stop Dose Admin Diphtheria/Tetanus/Acell Pertussis 0.5 ml 02/07/22 06:38 02/07/22 06:45 Tdap --Diph,Pertuss(Acell),Tet Vac/Pf 0.5 Ml Vial IM 02/07/22 06:39 0.5 ml .ONCE ONE Administration Diphtheria/Tetanus/Acell Pertussis Confirm 02/07/22 06:44 Tdap --Diph,Pertuss(Acell),Tet Vac/Pf 0.5 Ml Vial Administered 02/07/22 06:45 Dose 0.5 ml IM .STK-MED ONE Fentanyl Citrate 50 mcg 02/07/22 06:26 02/07/22 06:34 Fentanyl Citrate 100 Mcg/2 Ml* Vial IV 02/07/22 06:27 50 mcg STAT ONE Administration Fentanyl Citrate Confirm 02/07/22 06:29 Fentanyl Citrate 100 Mcg/2 Ml* Vial Administered 02/07/22 06:30 Dose 100 mcg .ROUTE .STK-MED ONE Fentanyl Citrate 50 mcg 02/07/22 06:52 02/07/22 06:57 Fentanyl Citrate 100 Mcg/2 Ml* Vial IV 02/07/22 06:53 50 mcg STAT ONE Administration Fentanyl Citrate Confirm 02/07/22 06:56 Fentanyl Citrate 100 Mcg/2 Ml* Vial Administered 02/07/22 06:57 Dose 100 mcg .ROUTE .STK-MED ONE Fentanyl Citrate 75 mcg 02/07/22 08:38 02/07/22 08:42 Fentanyl Citrate 100 Mcg/2 Ml* Vial IV 02/07/22 08:39 75 mcg STAT ONE Administration Fentanyl Citrate Confirm 02/07/22 08:40 Fentanyl Citrate 100 Mcg/2 Ml* Vial Administered 02/07/22 08:41 Dose 100 mcg .ROUTE .STK-MED ONE Ondansetron HCl 4 mg 02/07/22 06:26 02/07/22 06:34 Ondansetron Hcl 4 Mg/2 Ml Vial IV 02/07/22 06:27 4 mg STAT ONE Administration Ondansetron HCl Confirm 02/07/22 06:29 Ondansetron Hcl 4 Mg/2 Ml Vial Administered 02/07/22 06:30 Dose 4 mg .ROUTE .STK-MED ONE Lab/Rad Data: Laboratory Result Diagrams 02/07/22 06:43 02/07/22 06:43 Laboratory Results 02/07/22 02/07/22 02/07/22 Range/Units 08:26 06:43 06:43 WBC (4.0-10.5) K/mm3 RBC (4.1-5.6) M/mm3 Hgb (12.5-18.0) gm/dl Hct (42-50) % MCV (78-100) fl MCH (26-32) pg MCHC (32-36) g/dl RDW (11.5-14.0) % Plt Count (150-450) K/mm3 MPV (7.5-11.0) fl Segmented Neutrophils (36.-66.) % Lymphocytes (Manual) (24-44) % Monocytes (Manual) (0.0-12.0) % Basophils (Manual) (0.0-1.0) % Platelet Estimate (NORMAL) RBC Morphology Sodium 138 (137-145) mmol/L Potassium 4.5 (3.5-5.1) mmol/L Chloride 103 (98-107) mmol/L Carbon Dioxide 23 (22-30) mmol/L Anion Gap 16.6 H (5-15) MEQ/L BUN 12 (9-20) mg/dL Creatinine 0.59 L (0.66-1.25) mg/dL Estimated GFR > 60.0 ML/MIN Glucose 185 H (74-106) mg/dL Calcium 9.7 (8.4-10.2) mg/dL Total Bilirubin 0.60 (0.2-1.3) mg/dL AST 31 (17-59) U/L ALT 36 (0-50) U/L Alkaline Phosphatase 91 (38-126) U/L Troponin I < 0.012 (0.000-0.034) ng/mL Serum Total Protein 7.3 (6.3-8.2) g/dL Albumin 4.4 (3.5-5.0) g/dL Urinalys Dipstick Clnc MAIN LAB Urine Color YELLOW (YELLOW) Urine Appearance CLEAR (CLEAR) Urine pH 6.0 (5-6) Ur Specific [place] 1.010 (1.005-1.025) POC Urine Protein Conf NEGATIVE (Negative) Urine Ketones NEGATIVE (NEGATIVE) Urine Nitrite NEGATIVE (NEGATIVE) Urine Bilirubin NEGATIVE (NEGATIVE) Urine Urobilinogen 0.2 (0-1) mg/dL Urine Leukocytes NEGATIVE (NEGATIVE) Urine WBC (Auto) NONE (0-5) /HPF Urine RBC (Auto) NONE (0-2) /HPF U Epithel Cells (Auto) NONE (FEW) /HPF Urine Bacteria (Auto) NONE (NEGATIVE) /HPF Urine RBC NEGATIVE (0-5) Jesus/ul Ur Culture Indicated? NO Urine Glucose 500 (NEGATIVE) mg/dL 02/07/22 Range/Units 06:43 WBC 8.8 (4.0-10.5) K/mm3 RBC 5.34 (4.1-5.6) M/mm3 Hgb 15.9 (12.5-18.0) gm/dl Hct 47.9 (42-50) % MCV 89.7 (78-100) fl MCH 29.8 (26-32) pg MCHC 33.2 (32-36) g/dl RDW 14.3 H (11.5-14.0) % Plt Count 220 (150-450) K/mm3 MPV 10.2 (7.5-11.0) fl Segmented Neutrophils 84 H (36.-66.) % Lymphocytes (Manual) 12 L (24-44) % Monocytes (Manual) 3 (0.0-12.0) % Basophils (Manual) 1 (0.0-1.0) % Platelet Estimate NORMAL (NORMAL) RBC Morphology NORMAL Sodium (137-145) mmol/L Potassium (3.5-5.1) mmol/L Chloride (98-107) mmol/L Carbon Dioxide (22-30) mmol/L Anion Gap (5-15) MEQ/L BUN (9-20) mg/dL Creatinine (0.66-1.25) mg/dL Estimated GFR ML/MIN Glucose (74-106) mg/dL Calcium (8.4-10.2) mg/dL Total Bilirubin (0.2-1.3) mg/dL AST (17-59) U/L ALT (0-50) U/L Alkaline Phosphatase (38-126) U/L Troponin I (0.000-0.034) ng/mL Serum Total Protein (6.3-8.2) g/dL Albumin (3.5-5.0) g/dL Urinalys Dipstick Clnc Urine Color (YELLOW) Urine Appearance (CLEAR) Urine pH (5-6) Ur Specific [place] (1.005-1.025) POC Urine Protein Conf (Negative) Urine Ketones (NEGATIVE) Urine Nitrite (NEGATIVE) Urine Bilirubin (NEGATIVE) Urine Urobilinogen (0-1) mg/dL Urine Leukocytes (NEGATIVE) Urine WBC (Auto) (0-5) /HPF Urine RBC (Auto) (0-2) /HPF U Epithel Cells (Auto) (FEW) /HPF Urine Bacteria (Auto) (NEGATIVE) /HPF Urine RBC (0-5) Jesus/ul Ur Culture Indicated? Urine Glucose (NEGATIVE) mg/dL <NATI RYDER - Last Filed: 02/07/22 06:27> - Progress Progress: unchanged <KE BRO - Last Filed: 02/07/22 09:08> - Progress Progress Note: 02/07/22 06:39 50umg IV Fentanyl/4mg IV Zofran Tdap Care turned over to Dr. Bro w Labs/CT' ordered (NATI RYDER) 02/07/22 09:05 Studies show no significant trauma other than abrasions and contusions except for the CT of the abdomen pelvis which does show fractures of L2 suspected in stability. We spoke with Dr. Pemberton at [facility] in [place] who accepted the patient in transfer. (KE BRO) <NATI RYDER - Last Filed: 02/07/22 06:27> - Departure Departure Disposition: Transfer (Patient accepted by Dr. Pemberton at [facility]) Critical Care Time: No <KE BRO - Last Filed: 02/07/22 09:08> - Departure Clinical Impression: Fracture of L2 vertebra, Multiple abrasions, Multiple contusions Condition: Serious Referrals: ROSA MCCORD MD [Primary Care Provider] - Follow up/PCP as directed
[2022-02-07] MEDS ORDERED: Adacel Vial IM ONE ×2 (06:38→06:44)
[2022-02-07 06:57] LABS: Hematocrit 47.9 % (42-50); Hemoglobin 15.9 gm/dl (12.5-18.0); Mean Cell Volume 89.7 fl (78-100); Mean Corpuscular Hemoglobin 29.8 pg (26-32); Mean Corpuscular Hgb Concent. 33.2 g/dl (32-36); Mean Platelet Volume 10.2 fl (7.5-11.0); Platelet Count 220 K/mm3 (150-450); Red Blood Count 5.34 M/mm3 (4.1-5.6); Red Cell Distribution Width 14.3 % (11.5-14.0); White Blood Count 8.8 K/mm3 (4.0-10.5)
[2022-02-07 07:01] LABS: ALBUMIN 4.4 g/dL (3.5-5.0); ALKALINE PHOSPHATASE 91 U/L (38-126); ANION GAP 16.6 MEQ/L (5-15); BLOOD UREA NITROGEN 12 mg/dL (9-20); CHLORIDE 103 mmol/L (98-107); Calcium 9.7 mg/dL (8.4-10.2); Carbon Dioxide 23 mmol/L (22-30); Creatinine 1 0.59 mg/dL (0.66-1.25); EST GLOMERULAR FILTRATION RATE > 60.0 ML/MIN; Glucose 185 mg/dL (74-106); Potassium 4.5 mmol/L (3.5-5.1); SGOT/AST 31 U/L (17-59); SGPT/ALT 36 U/L (0-50); SODIUM 138 mmol/L (137-145); Total Protein 7.3 g/dL (6.3-8.2)
[2022-02-07 07:35] LABS: Basophil 1 % (0.0-1.0); Lymphocytes 12 % (24-44); Monocyte 3 % (0.0-12.0); Total Cells Counted 100
[2022-02-07 07:36] LABS: Platelet Estimate NORMAL (NORMAL)
[2022-02-07 08:30] LABS: Appearance CLEAR (CLEAR); Bilirubin NEGATIVE (NEGATIVE); Dipstick done @ ? MAIN LAB; Glucose 500 mg/dL (NEGATIVE); Ketones NEGATIVE (NEGATIVE); Nitrite NEGATIVE (NEGATIVE); Protein,Urine Dip NEGATIVE (Negative); RBC NEGATIVE Ery/ul (0-5); Urobilinogen 0.2 mg/dL (0-1)
[2022-02-07 08:31] LABS: Urine Cultured Indicated? NO
[2022-02-07 10:13] VITALS: BP 158/75; PULSE 72; O2SAT 98
--- NOTE | 2022-02-07 19:13 | XRAY ---
Indication: Status post fall. Dizziness. Multiple contiguous axial images obtained through the head without contrast. Comparison: November 07, 2020. Age-appropriate global atrophy. No acute intracranial hemorrhage, abnormal extra-axial fluid collection, or mass effect. Fourth ventricle is midline without hydrocephalus. Saeed-white matter differentiation preserved. Bony calvarium intact again with incidental hyperostosis frontalis interna. Visualized paranasal sinuses and mastoid air cells are clear. Impression: Continued negative CT head without contrast exam. Comment: Preliminary interpretation made by [facility]. No critical discrepancy.
--- NOTE | 2022-02-07 19:15 | XRAY ---
Indication: Status post fall. Right jaw pain. Multiple contiguous axial images obtained through the facial bones. Sagittal and coronal reformatted images obtained. Comparison: None. Age-related osteopenia. Axial images negative for acute fracture, suspicious bony lesions, or radiopaque foreign body. Orbits including roof, umaña, and floors intact. Paranasal sinuses and nasal passages are clear. Poor dentition with a few dental amalgams. Left TMJ slightly subluxed anteriorly. Visualized cervical spine intact with mild degenerative changes. Visualized noncontrasted soft tissues unremarkable. Impression: Left TMJ subluxed anteriorly. Osteopenia. Remaining CT facial bones negative. Comment: Preliminary interpretation made by [facility]. No critical discrepancy.
--- NOTE | 2022-02-07 19:17 | XRAY ---
Indication: Pain following fall. Comparison: None 3 view right hand demonstrates mild osteopenia. No other bony, articular, or soft tissue abnormalities.
--- NOTE | 2022-02-07 19:19 | XRAY ---
Indication: Status post fall. Right rib pain. Multiple contiguous axial images obtained through the chest using 100 cc Isovue 370 contrast. Comparison: November 07, 2020. Lungs inflated and remain clear. Stable chronic right hemidiaphragm elevation. Heart not enlarged. Aorta is normal in course and caliber. No pathologic mediastinal/hilar lymphadenopathy. Bony thorax intact again with mild osteopenia and mild degenerative changes throughout the spine. Impression: Again chronic right hemidiaphragm elevation and chronic bony findings. Continued negative CT chest with contrast exam Comment: Preliminary interpretation made by [facility]. No critical discrepancy.
--- NOTE | 2022-02-07 19:23 | XRAY ---
Indication: Status post fall. Right flank/groin pain. Multiple contiguous axial images obtained through the abdomen and pelvis using 100 cc Isovue 370 contrast. Comparison: None. Limited exam due to patient body habitus. Noncontrasted stomach and bowel loops appear nonobstructed. No free fluid/air. Visualized liver demonstrates 22 cm fatty hepatomegaly. 14 cm splenomegaly. Remaining gallbladder, pancreas, adrenal glands, kidneys, ureters, and bladder are unremarkable. Mild scattered aortoiliac calcifications. No AAA or pathological retroperitoneal lymphadenopathy. Osseous structures intact with mild osteopenia and mild/moderate degenerative changes throughout the spine and both hips. Impression: 1. Limited exam due to patient body habitus. 2. Fatty hepatomegaly, splenomegaly, arteriosclerotic disease, and chronic bony findings. 3. Remaining CT abdomen/pelvis with contrast exam is negative. Comment: Preliminary interpretation made by [facility] who reports L2 fracture which I do not appreciate. Paraspinal soft tissues are also unremarkable.
== END 2022-02-07 10:14 | disposition short-term general hospital (02) ==
LOC: ED 05:53
DX: S32.029A Unspecified fracture of second lumbar vertebra, initial encounter for closed fracture (principal); W18.39XA Other fall on same level, initial encounter; M54.9 Dorsalgia, unspecified; T14.8XXA Other injury of unspecified body region, initial encounter; S00.81XA Abrasion of other part of head, initial encounter; S60.511A Abrasion of right hand, initial encounter; M25.552 Pain in left hip; R51.9 Headache, unspecified; E11.9 Type 2 diabetes mellitus without complications; Z79.84 Long term (current) use of oral hypoglycemic drugs; Z79.899 Other long term (current) drug therapy
CPT/HCPCS: 36415; 70450; 70486; 71260; 73130; 74177; 80053; 81015; 84484; 85025; 90471; 90715; 96374; 96375; 96376; 99285; J2405; J3010

== ENCOUNTER 2022-09-23 14:29 | Day surgery (SDC) | payer MEDICARE, OTHER ==
[2022-09-23] MEDS ORDERED: BUPIVACAINE 0.5% VIAL IJ ONE (14:30)
[2022-09-23] MEDS ORDERED: Xylocaine 1% Vial 30 ML PF IJ ONE (14:30)
[2022-09-23] MEDS ORDERED: Depo-Medrol 40 MG/ML IM ONE (14:30)
--- NOTE | 2022-09-23 19:51 | XRAY ---
Indication: Right SI joint injection. Intraoperative fluoroscopy provided for 16 seconds. 2 digital spot image submitted for interpretation demonstrates posterior needle tip projecting over the right SI joint. Correlate with intraoperative findings/report.
--- NOTE | 2022-09-24 19:54 | XRAY ---
16 seconds of fluoroscopy was used in surgery for a right sacroiliac joint injection.
== END 2022-09-23 17:55 | disposition home or self-care (01) ==
LOC: SDC-PAIN 14:29
PROVIDERS: ATTEND Psychiatry & Neurology Pain Medicine
DX: M46.1 Sacroiliitis, not elsewhere classified (principal); E11.9 Type 2 diabetes mellitus without complications; Z79.899 Other long term (current) drug therapy
CPT/HCPCS: 27096; 72170; 77002; 82947; G0260; J1030; J2001

== ENCOUNTER 2022-12-09 13:25 | Day surgery (SDC) | payer MEDICARE, OTHER ==
[2022-12-09] MEDS ORDERED: SYNVISC 16 MG/2 ML SYRINGE IU ONE (13:26)
[2022-12-09] MEDS ORDERED: LIDOCAINE HCL 1% 50 MG/5 ML VL PF IJ ONE (13:26)
--- NOTE | 2022-12-09 17:19 | XRAY ---
15 seconds of fluoroscopy was used in surgery for a right intra-articular knee injection.
--- NOTE | 2022-12-09 17:19 | XRAY ---
7 seconds of fluoroscopy was used in surgery for left intra-articular knee injection.
--- NOTE | 2022-12-09 17:21 | XRAY ---
Indication: Right knee injection. Intraoperative fluoroscopy provided for 15 seconds. Single digital spot image submitted for interpretation demonstrates needle tip projecting over the right femur intercondylar notch. Small amount of contrast injected for needle tip placement. Correlate with intraoperative findings/report.
--- NOTE | 2022-12-09 17:21 | XRAY ---
Indication: Left knee injection. Intraoperative fluoroscopy provided for 7 seconds. Single digital spot image submitted for interpretation demonstrates needle tip projecting over the left femur intercondylar notch. Small amount of contrast injected for needle tip placement. Correlate with intraoperative findings/report.
== END 2022-12-09 16:22 | disposition home or self-care (01) ==
LOC: SDC-PAIN 13:25
PROVIDERS: ATTEND Psychiatry & Neurology Pain Medicine
DX: M17.0 Bilateral primary osteoarthritis of knee (principal); E11.9 Type 2 diabetes mellitus without complications; Z79.899 Other long term (current) drug therapy
CPT/HCPCS: 20610; 73560; 77002; 82947; J2001; J7325; Q9966

== ENCOUNTER 2022-12-16 16:16 | Day surgery (SDC) | payer MEDICARE, OTHER ==
[2022-12-16] MEDS ORDERED: LIDOCAINE HCL 1% 50 MG/5 ML VL PF IJ ONE (16:17)
[2022-12-16] MEDS ORDERED: SYNVISC 16 MG/2 ML SYRINGE IU ONE (16:17)
--- NOTE | 2022-12-16 20:27 | XRAY ---
Indication: Left knee injection. Intraoperative fluoroscopy provided for 6 seconds. Single digital spot image submitted for interpretation demonstrates needle tip projecting over the left femur intercondylar notch. Small amount of contrast injected for needle tip placement. Correlate with intraoperative findings/report.
--- NOTE | 2022-12-16 20:27 | XRAY ---
Indication: Right knee injection. Intraoperative fluoroscopy provided for 6 seconds. Single digital spot image submitted for interpretation demonstrates needle tip projecting over the right femur intercondylar notch. Small amount of contrast injected for needle tip placement. Correlate with intraoperative findings/report.
--- NOTE | 2022-12-17 10:58 | XRAY ---
6 seconds of fluoroscopy was used in surgery for a left intra-articular knee injection.
--- NOTE | 2022-12-17 10:59 | XRAY ---
6 seconds of fluoroscopy was used in surgery for a right intra-articular knee injection.
== END 2022-12-16 19:20 | disposition home or self-care (01) ==
LOC: SDC-PAIN 16:16
PROVIDERS: ATTEND Psychiatry & Neurology Pain Medicine
DX: M17.0 Bilateral primary osteoarthritis of knee (principal); E11.9 Type 2 diabetes mellitus without complications; Z79.899 Other long term (current) drug therapy
CPT/HCPCS: 20610; 73560; 77002; 82947; J2001; J7325; Q9966

== ENCOUNTER 2022-12-23 12:54 | Day surgery (SDC) | payer MEDICARE, OTHER ==
[2022-12-23] MEDS ORDERED: SYNVISC 16 MG/2 ML SYRINGE IU ONE (12:55)
[2022-12-23] MEDS ORDERED: LIDOCAINE HCL 1% 50 MG/5 ML VL PF IJ ONE (12:55)
--- NOTE | 2022-12-23 16:54 | XRAY ---
Indication: Left knee injection. Intraoperative fluoroscopy provided for 8 seconds. Single digital spot image submitted for interpretation demonstrates needle tip projecting over the left femur intercondylar notch. Small amount of contrast injected for needle tip placement. Correlate with intraoperative findings/report.
--- NOTE | 2022-12-23 16:56 | XRAY ---
Indication: Right knee injection. Intraoperative fluoroscopy provided for 11 seconds. Single digital spot image submitted for interpretation demonstrates needle tip projecting over the right femur intercondylar notch. Small amount of contrast injected for needle tip placement. Correlate with intraoperative findings/report.
--- NOTE | 2022-12-24 08:39 | XRAY ---
11 seconds of fluoroscopy was used in surgery for a right intra-articular knee injection.
--- NOTE | 2022-12-24 08:39 | XRAY ---
8 seconds of fluoroscopy was used in surgery for a left intra-articular knee injection.
== END 2022-12-23 14:50 | disposition home or self-care (01) ==
LOC: SDC-PAIN 12:54
PROVIDERS: ATTEND Psychiatry & Neurology Pain Medicine
DX: M17.0 Bilateral primary osteoarthritis of knee (principal); E11.9 Type 2 diabetes mellitus without complications; Z79.899 Other long term (current) drug therapy
CPT/HCPCS: 20610; 73560; 77002; 82947; J2001; J7325; Q9966

== ENCOUNTER 2023-05-19 08:43 | Day surgery (SDC) | payer MEDICARE, OTHER ==
[2023-05-19] MEDS ORDERED: Depo-Medrol 40 MG/ML IM ONE (08:44)
[2023-05-19] MEDS ORDERED: BUPIVACAINE 0.5% VIAL IJ ONE (08:44)
[2023-05-19] MEDS ORDERED: LIDOCAINE HCL 1% 50 MG/5 ML VL PF IJ ONE (08:44)
--- NOTE | 2023-05-19 12:07 | XRAY ---
14 seconds of fluoroscopy was used in surgery for a right sacroiliac joint injection.
--- NOTE | 2023-05-19 12:08 | XRAY ---
Indication: Right SI joint injection. Intraoperative fluoroscopy provided for 14 seconds. 2 digital spot image submitted for interpretation demonstrates posterior needle tip projecting over the right SI joint. Correlate with intraoperative findings/report.
== END 2023-05-19 10:55 | disposition home or self-care (01) ==
LOC: SDC-PAIN 08:43
PROVIDERS: ATTEND Psychiatry & Neurology Pain Medicine
DX: M46.1 Sacroiliitis, not elsewhere classified (principal); E11.9 Type 2 diabetes mellitus without complications; Z79.899 Other long term (current) drug therapy
CPT/HCPCS: 27096; 64635; 64636; 72170; 77002; 82947; G0260; J1030; J2001

== ENCOUNTER 2024-05-10 15:53 | Day surgery (SDC) | payer MEDICARE, OTHER ==
[2024-05-10] MEDS ORDERED: LIDOCAINE HCL 1% 50 MG/5 ML VL PF IJ ONE (15:54)
[2024-05-10] MEDS ORDERED: BUPIVACAINE 0.5% VIAL IJ ONE (15:54)
[2024-05-10] MEDS ORDERED: SYNVISC 16 MG/2 ML SYRINGE IU ONE (15:54)
--- NOTE | 2024-05-10 18:39 | XRAY ---
Indication: Left knee injection. Intraoperative fluoroscopy provided for 10 seconds. Single digital spot image submitted for interpretation demonstrates small amount of contrast in the left femur intercondylar notch. Correlate with intraoperative findings/report.
--- NOTE | 2024-05-10 18:39 | XRAY ---
Indication: Right knee injection. Intraoperative fluoroscopy provided for 19 seconds. Single digital spot image submitted for interpretation demonstrates needle tip projecting over the right femur intercondylar notch. Small amount of contrast injected for needle tip placement. Correlate with intraoperative findings/report.
--- NOTE | 2024-05-11 09:49 | XRAY ---
19 seconds of fluoroscopy was used in surgery for a right intra-articular knee injection.
--- NOTE | 2024-05-11 09:49 | XRAY ---
10 seconds of fluoroscopy was used in surgery for a left intra-articular knee injection.
== END 2024-05-10 17:40 | disposition home or self-care (01) ==
LOC: SDC-PAIN 15:53
PROVIDERS: ATTEND Psychiatry & Neurology Pain Medicine
DX: M17.0 Bilateral primary osteoarthritis of knee (principal); E11.9 Type 2 diabetes mellitus without complications
CPT/HCPCS: 20610; 62321; 73560; 77002; 82947; J2001; J7325; Q9966

== ENCOUNTER 2024-05-24 15:26 | Day surgery (SDC) | payer MEDICARE, OTHER ==
[2024-05-24] MEDS ORDERED: LIDOCAINE HCL 1% 50 MG/5 ML VL PF IJ ONE (15:27)
[2024-05-24] MEDS ORDERED: SYNVISC 16 MG/2 ML SYRINGE IU ONE (15:27)
--- NOTE | 2024-05-25 12:14 | XRAY ---
7 seconds of fluoroscopy was used in surgery for a left intra-articular knee injection.
--- NOTE | 2024-05-25 12:15 | XRAY ---
11 seconds of fluoroscopy was used in surgery for a right intra-articular knee injection.
== END 2024-05-24 18:10 | disposition home or self-care (01) ==
LOC: SDC-PAIN 15:26
PROVIDERS: ATTEND Psychiatry & Neurology Pain Medicine
DX: M17.0 Bilateral primary osteoarthritis of knee (principal); E11.9 Type 2 diabetes mellitus without complications
CPT/HCPCS: 20610; 73560; 77002; 82947; J2001; J7325; Q9966

== ENCOUNTER 2024-05-31 15:24 | Day surgery (SDC) | payer MEDICARE, OTHER ==
[2024-05-31] MEDS ORDERED: LIDOCAINE HCL 1% 50 MG/5 ML VL PF IJ ONE (15:25)
[2024-05-31] MEDS ORDERED: SYNVISC 16 MG/2 ML SYRINGE IU ONE (15:25)
--- NOTE | 2024-05-31 19:17 | XRAY ---
Indication: Left knee injection. Intraoperative fluoroscopy provided for 12 seconds. Single digital spot image submitted for interpretation demonstrates needle tip projecting over left femur intercondylar notch. Small amount of contrast injected for needle tip placement.. Correlate with intraoperative findings/report.
--- NOTE | 2024-05-31 19:17 | XRAY ---
Indication: Right knee injection. Intraoperative fluoroscopy provided for 8 seconds. Single digital spot image submitted for interpretation demonstrates needle tip projecting over right femur intercondylar notch. Small amount of contrast injected for needle tip placement.. Correlate with intraoperative findings/report.
--- NOTE | 2024-06-01 08:52 | XRAY ---
8 seconds of fluoroscopy was used in surgery for a right intra-articular knee injection.
--- NOTE | 2024-06-01 08:52 | XRAY ---
12 seconds of fluoroscopy was used in surgery for a left intra-articular knee injection.
== END 2024-05-31 17:22 | disposition home or self-care (01) ==
LOC: SDC-PAIN 15:24
PROVIDERS: ATTEND Psychiatry & Neurology Pain Medicine
DX: M17.0 Bilateral primary osteoarthritis of knee (principal); E11.9 Type 2 diabetes mellitus without complications
CPT/HCPCS: 20610; 73560; 77002; 82947; J2001; J7325; Q9966

== ENCOUNTER 2024-10-11 15:50 | Day surgery (SDC) | payer MEDICARE, OTHER ==
[2024-10-11] MEDS ORDERED: Depo-Medrol 40 MG/ML IM ONE (15:51)
[2024-10-11] MEDS ORDERED: LIDOCAINE HCL 1% AMPUL 5 ML IJ ONE (15:51)
[2024-10-11] MEDS ORDERED: Sodium Chloride 0.9(Preservative Free) 10 ML IJ ONE (15:51)
--- NOTE | 2024-10-11 21:03 | XRAY ---
Indication: Lumbar VERONICA. Intraoperative fluoroscopy provided for 22 seconds. 5 digital spot image submitted for interpretation demonstrates posterior needle tip projecting posterior to last lumbar segment. Small amount of contrast injected for needle tip placement. Correlate with intraoperative findings/report.
--- NOTE | 2024-10-12 08:40 | XRAY ---
22 seconds of fluoroscopy used in surgery for a lumbar VERONICA.
== END 2024-10-11 18:05 | disposition home or self-care (01) ==
LOC: SDC-PAIN 15:50
PROVIDERS: ATTEND Psychiatry & Neurology Pain Medicine
DX: M54.16 Radiculopathy, lumbar region (principal); E11.9 Type 2 diabetes mellitus without complications
CPT/HCPCS: 72100; 77003; 82947

== ENCOUNTER 2025-01-17 14:37 | Day surgery (SDC) | payer MEDICARE, OTHER ==
[2025-01-17] MEDS ORDERED: LIDOCAINE HCL 1% AMPUL 5 ML IJ ONE (14:38)
[2025-01-17] MEDS ORDERED: Sodium Chloride 0.9(Preservative Free) 10 ML IJ ONE (14:38)
[2025-01-17] MEDS ORDERED: Depo-Medrol 40 MG/ML IM ONE (14:38)
--- NOTE | 2025-01-17 20:35 | XRAY ---
Indication: Lumbar VERONICA. Intraoperative fluoroscopy provided for 15 seconds. 2 digital spot images submitted for interpretation demonstrates needle tip projecting posterior to lumbosacral junction. Small amount of contrast injected for needle tip placement. Correlate with intraoperative findings/report.
--- NOTE | 2025-01-17 20:49 | XRAY ---
15 seconds of fluoroscopy were used in surgery for a lumbar VERONICA.
== END 2025-01-17 17:04 | disposition home or self-care (01) ==
LOC: SDC-PAIN 14:37
PROVIDERS: ATTEND Psychiatry & Neurology Pain Medicine
DX: M54.16 Radiculopathy, lumbar region (principal); E11.9 Type 2 diabetes mellitus without complications
CPT/HCPCS: 62323; 72100; 82947; Q9966

== ENCOUNTER 2025-05-24 12:02 | Day surgery (SDC) | payer MEDICARE, OTHER ==
[2025-05-24] MEDS ORDERED: BUPIVACAINE 0.5% VIAL IJ ONE (12:03)
[2025-05-24] MEDS ORDERED: Depo-Medrol 40 MG/ML IM ONE (12:03)
[2025-05-24] MEDS ORDERED: propofoL IV ONE (13:54)
[2025-05-24] MEDS ORDERED: Lactated Ringers 1,000 ML IV ONE ×2 (14:33→14:34)
--- NOTE | 2025-05-24 15:17 | XRAY ---
Indication: Bilateral L4-S1 MBB. Intraoperative fluoroscopy provided for 14 seconds. Single digital spot image submitted for interpretation demonstrates posterior needle tips projecting over expected left and right L4-S1 nerve roots. Correlate with intraoperative findings/report.
--- NOTE | 2025-05-24 22:15 | XRAY ---
14 seconds of fluoroscopy was used in surgery for a bilateral L4-S1 MBB.
== END 2025-05-24 14:20 | disposition home or self-care (01) ==
LOC: SDC-PAIN 12:02
PROVIDERS: ATTEND Psychiatry & Neurology Pain Medicine
DX: M47.817 Spondylosis without myelopathy or radiculopathy, lumbosacral region (principal); E11.9 Type 2 diabetes mellitus without complications

== ENCOUNTER 2025-09-06 15:27 | Day surgery (SDC) | payer MEDICARE, OTHER ==
--- NOTE | 2025-09-06 17:36 | XRAY ---
Indication: Left knee injection. Intraoperative fluoroscopy provided for 8 seconds. Single digital spot image submitted for interpretation demonstrates needle tip projecting over left femur intercondylar notch. Small amount of contrast injected for needle tip placement. Correlate with intraoperative findings/report.
--- NOTE | 2025-09-06 17:36 | XRAY ---
Indication: Right knee injection. Intraoperative fluoroscopy provided for 9 seconds. Single digital spot image submitted for interpretation demonstrates needle tip projecting over right femur intercondylar notch. Small amount of contrast injected for needle tip placement. Correlate with intraoperative findings/report.
--- NOTE | 2025-09-07 12:02 | XRAY ---
8 seconds of fluoroscopy was used in surgery for a left intra-articular knee injection.
--- NOTE | 2025-09-07 12:02 | XRAY ---
9 seconds of fluoroscopy was used in surgery for a right intra-articular knee injection.
== END 2025-09-06 17:30 | disposition home or self-care (01) ==
LOC: SDC-PAIN 15:27
PROVIDERS: ATTEND Psychiatry & Neurology Pain Medicine
DX: M17.0 Bilateral primary osteoarthritis of knee (principal); E11.9 Type 2 diabetes mellitus without complications

== ENCOUNTER 2025-09-12 15:12 | Day surgery (SDC) | payer MEDICARE, OTHER ==
[2025-09-12] MEDS ORDERED: GELSYN-3 IU ONE (15:13)
--- NOTE | 2025-09-12 18:59 | XRAY ---
Indication: Left knee injection. Intraoperative fluoroscopy provided for 9 seconds. Single digital spot image submitted for interpretation demonstrates needle tip projecting over left femur intercondylar notch. Small amount of contrast injected for needle tip placement. Correlate with intraoperative findings/report.
--- NOTE | 2025-09-12 18:59 | XRAY ---
Indication: Right knee injection. Intraoperative fluoroscopy provided for 12 seconds. Single digital spot image submitted for interpretation demonstrates needle tip projecting over right femur intercondylar notch. Small amount of contrast injected for needle tip placement. Correlate with intraoperative findings/report.
--- NOTE | 2025-09-13 12:55 | XRAY ---
9 seconds of fluoroscopy was used in surgery for a left intra-articular knee injection.
--- NOTE | 2025-09-13 12:56 | XRAY ---
12 seconds of fluoroscopy was used in surgery for a right intra-articular knee injection.
== END 2025-09-12 18:10 | disposition home or self-care (01) ==
LOC: SDC-PAIN 15:12
PROVIDERS: ATTEND Psychiatry & Neurology Pain Medicine
DX: M17.0 Bilateral primary osteoarthritis of knee (principal); E11.9 Type 2 diabetes mellitus without complications